=== PATIENT | male | born 1980 | race Caucasian/White ===

== ENCOUNTER 2020-01-09 21:28 | Emergency (ER) | payer MEDICAID ==
[~2020-01-09] VITALS: Ht 193 cm; Wt 97.7 kg
[2020-01-09 22:52] LABS: ALANINE AMINOTRANSFERASE 26 U/L (12-78); ALBUMIN 3.8 G/DL (3.4-5.0); ALBUMIN/GLOBULIN RATIO 0.9 (1.1-1.5); ALKALINE PHOSPHATASE 80 IU/L (46-116); ANION GAP 10 (8-16); ASPARTATE AMINO TRANSFERASE 22 U/L (10-37); BILIRUBIN,TOTAL 0.5 MG/DL (0.1-1.0); BLOOD UREA NITROGEN 17 MG/DL (7-18); BUN/CREATININE RATIO 14.2 (5.4-32.0); CALCIUM 8.6 MG/DL (8.5-10.1); CHLORIDE 103 MMOL/L (99-107); GLUCOSE 91 MG/DL (70-104); POTASSIUM 3.9 MMOL/L (3.5-5.1); SODIUM 139 MMOL/L (135-145); TOTAL PROTEIN 7.9 G/DL (6.4-8.2); eGFR 68 ML/MIN
[2020-01-09 22:55] LABS: BASOPHILS % (AUTO) 0.7 % (0-1); EOSINOPHILS # (AUTO) 0.1 X10'3 (0-0.9); EOSINOPHILS % (AUTO) 0.9 % (0-6); HEMATOCRIT 37.9 % (42.0-52.0); HEMOGLOBIN 12.6 g/dl (14.0-17.9); LYMPHOCYTES # (AUTO) 0.8 X10'3 (1.1-4.8); LYMPHOCYTES % (AUTO) 11.7 % (21-51); MEAN CORPUSCULAR HEMOGLOBIN 29.2 PG (27.0-31.0); MEAN CORPUSCULAR HGB CONC 33.2 g/dL (33.0-36.5); MEAN CORPUSCULAR VOLUME 87.8 FL (78-98); MEAN PLATELET VOLUME 8.2 FL (7.4-10.4); MONOCYTES # (AUTO) 0.5 X10'3 (0-0.9); MONOCYTES % (AUTO) 7.7 % (2-12); NEUTROPHILS # (AUTO) 5.4 X10'3 (1.8-7.7); PLATELET COUNT 314 X10'3 (140-440); RED BLOOD COUNT 4.32 X10'6 (4.70-6.10); RED CELL DISTRIBUTION WIDTH 13.2 % (11.5-14.5); WHITE BLOOD COUNT 6.9 X10'3 (4.5-11.0)
[2020-01-09 23:06] LABS: ETHANOL < 0.010 GM/DL (0.0-0.010)
[2020-01-09] MEDS ORDERED: diphenhydrAMINE 50 mg/ml inj IM ONE (23:10)
[2020-01-09] MEDS ORDERED: haloperidol lactate 5mg/ml inj IM ONE (23:10)
[2020-01-09] MEDS ORDERED: LORazepam 2 mg/ml vial IM ONE (23:10)
[2020-01-10 01:05] LABS: CLARITY,URINE CLEAR (Clear); COLOR,URINE YELLOW (Yellow); GLUCOSE, URINE NEGATIVE (Neg); KETONES,URINE 15 mg/dl (Neg); LEUKOCYTE ESTERASE ,URINE NEGATIVE (Neg); NITRITES, URINE NEGATIVE (Neg); OCCULT BLOOD,URINE NEGATIVE (Neg); PROTEIN,URINE TRACE mg/dl (Neg); UROBILINOGEN,URINE 0.2 E.U/dL (0.2-1.0)
[2020-01-10 01:10] LABS: UA COLLECTION TYPE STRAIGHT CATH
[2020-01-10 01:11] LABS: BACTERIA,URINE FEW /HPF (Neg); RBC,URINE 0-2 /HPF (0-2); SQUAMOUS EPITHELIAL CELL,UR MANY /LPF (FEW); WBC,URINE 0-4 /HPF (0-4)
[2020-01-10 01:15] LABS: URINE AMPHETAMINE SCREEN POSITIVE (Neg); URINE BARBITUATE SCREEN NEGATIVE (Neg); URINE BENZODIAZEPINES SCREEN NEGATIVE (Neg); URINE CANNABINOID SCREEN NEGATIVE (Neg); URINE COCAINE SCREEN NEGATIVE (Neg); URINE METHADONE SCREEN NEGATIVE (Neg); URINE OPIATE SCREEN NEGATIVE (Neg); URINE PHENCYCLIDINE SCREEN NEGATIVE (Neg)
--- NOTE | 2020-01-10 06:00 | NUR ---
asleep Addendum: 01/10/20 at 1437 by DEANNAELL wrong patient
--- NOTE | 2020-01-10 11:00 | NUR ---
resting in bed
--- NOTE | 2020-01-10 11:02 | NUR ---
Breaking Primary RN, pt is laying on his right side, eyes closed, appears to be sleeping, regular breathing apparent
--- NOTE | 2020-01-10 11:05 | NUR ---
packet sent to [facility]
--- NOTE | 2020-01-10 12:00 | NUR ---
resting in bed
--- NOTE | 2020-01-10 12:16 | NUR ---
PT APPEARS TO BE SLEEPING AT THIS TIME
--- NOTE | 2020-01-10 13:00 | NUR ---
resting in bed
--- NOTE | 2020-01-10 13:18 | NUR ---
Lunch relief for Primary Nurse. Pt is resting on the bed in a comfortable position.
--- NOTE | 2020-01-10 14:00 | NUR ---
resting in bed
[2020-01-10 14:47] VITALS: BP 112/75
--- NOTE | 2020-01-10 15:00 | NUR ---
getting dressed signed DC orders awaiting cab estimated arrival in 50 minutes
== END 2020-01-10 15:19 | disposition home or self-care (01) ==
LOC: ER 21:29
DX: F23 Brief psychotic disorder (principal); F15.10 Other stimulant abuse, uncomplicated; Z59.0 Homelessness; Z88.2 Allergy status to sulfonamides; Z88.8 Allergy status to other drugs, medicaments and biological substances
CPT/HCPCS: 36415; 80053; 80305; 80320; 81001; 84443; 85025; 96372; 99284; J1200; J1630; J2060